=== PATIENT | female | born 1990 | race Two or more races ===

== ENCOUNTER 2020-08-04 05:12 | Inpatient (IN) ==
[2020-08-04] MEDS ORDERED: ONDANSETRON 4 MG/2 ML VIAL IV PRN ×2 (05:29→12:31)
[2020-08-04] MEDS ORDERED: OXYTOCIN/LR 20 UNIT/1,000 ML BAG IV SCH (05:30)
[2020-08-04] MEDS ORDERED: LACTATED RINGERS 1,000 ML IV SCH (05:30)
[2020-08-04 06:07] LABS: Basophils % 0.4 % (0.0-0.8); Eosinophils # 0.2 10*3/uL (0.0-0.87); Eosinophils % 2.1 % (0.00-10.9); Hematocrit 32.2 VOL% (35.7-47.0); Hemoglobin 9.9 GM/DL (12.0-16.0); Immature Granulocytes % 0.8 %; Immature Granulocytes Absolute 0.06 #; Lymphocytes # 2.8 10*3/uL (1.4-4.0); Lymphocytes % 39.7 % (21.3-54.2); Mean Corpuscular HGB Conc 30.7 GM/DL (32-36); Mean Corpuscular Volume 87.5 FL (87-102); Mean Platelet Volume 10.2 FL (9.6-12.0); Monocytes % 6.8 % (1.7-12.7); Neutrophils % 50.2 % (38.7-73.9); Platelet Count 148 T/CUMM (130-400); Red Blood Count 3.68 MC/CUMM (3.8-5.5); Red Cell Distribution Width 14.2 % (9.3-17.3); White Blood Count 7.1 T/CUMM (4-12)
[2020-08-04 06:30] LABS: Alanine Aminotransferase 10 U/L (13-56); Albumin 2.8 G/DL (3.4-5.0); Alkaline Phosphatase 197 U/L (45-117); Aspartate Amino Transferase 19 U/L (0-37); Bilirubin,Total < 0.39 MG/DL (0.2-1.0); Blood Urea Nitrogen 6 MG/DL (7-18); Calcium 8.6 MG/DL (8.5-10.1); Carbon Dioxide 21 MMOL/L (21-32); Estimated Glom Filtration Rate 115 ML/MIN; Glucose 77 MG/DL (74-106); Osmolality,Calculated 273.5 MOS/KG (273-304); Potassium 3.8 MMOL/L (3.5-5.1); Sodium 139 MMOL/L (136-145); Total Protein 7.2 G/DL (6.4-8.3)
[2020-08-04 06:36] LABS: Bacteria,Urine Few /HPF (Few); Bilirubin,Urine Negative (Negative); Blood, Urine Negative (Negative); Glucose,Urine (UA) Negative (Negative); Ketones,Urine Negative (Negative); Mucus,Urine Occasional /LPF (Occasional); Nitrite,Urine Negative (Negative); Protein,Urine Negative; RBC,Urine 1 /HPF (0-4); Squamous Epithelial Cell,Urine Moderate /HPF (0-10); Urine Appearance CLEAR (Clear); Urine Color Yellow (Yellow); Urine Specific Gravity 1.012 (1.001-1.035); Urine Urobilinogen < 2.0 EU/DL (0.2-1.0); WBC,Urine 2 /HPF (0-6)
[2020-08-04] MEDS ORDERED: miSOPROStoL 200 MCG TABLET ONE (11:22)
[2020-08-04] MEDS ORDERED: CARBOPROST TROMETHAMINE 250 MCG/ML AMP IM ONE (11:22)
[2020-08-04] MEDS ORDERED: METHYLERGONOVINE 0.2 MG/1 ML AMP ONE (11:22)
[2020-08-04] MEDS ORDERED: MEPERIDINE 50 MG/1 ML VIAL IV ONE (12:00)
[2020-08-04] MEDS ORDERED: oxyCODONE/ACETAMINOPHEN 5-325 MG TABLET PO PRN ×2 (12:31)
[2020-08-04] MEDS ORDERED: DIPH/TET/ACEL PERT BOOSTER VACCINE 0.5 ML VIAL IM ONE (12:31)
[2020-08-04] MEDS ORDERED: LANOLIN 50% CREAM 0.3 OZ TUBE TOP PRN (12:31)
[2020-08-04] MEDS ORDERED: WITCH HAZEL PADS 100/JAR TOP PRN (12:31)
[2020-08-04] MEDS ORDERED: BISACODYL 10 MG SUPP RECTAL PRN (12:31)
[2020-08-04] MEDS ORDERED: RHO(D) IMMUNE GLOBULIN 300 MCG SYRINGE IM ONE (12:31)
[2020-08-04] MEDS ORDERED: BENZOCAINE 20%/MENTHOL 0.5% SPRAY 56 GM CAN TOP PRN (12:31)
[2020-08-04] MEDS ORDERED: MEASLES/MUMPS/RUBELLA VACCINE 0.5 ML VIAL SUBCUT ONE (12:31)
[2020-08-04] MEDS ORDERED: ACETAMINOPHEN 325 MG TABLET PO PRN (12:31)
[2020-08-04] MEDS ORDERED: OXYTOCIN/LR 20 UNIT/1,000 ML BAG IV ONE (12:31)
[2020-08-04] MEDS ORDERED: HYDROCORTISONE 2.5% RECTAL CREAM 30 GM TUBE TOP PRN (12:31)
[2020-08-04 12:39] LABS: Cord Arterial Blood HCO3 24.3 MMOL/L
[2020-08-04 12:41] LABS: Cord Venous Blood HCO3 21.9 MMOL/L; Cord Venous Blood PCO2 40.1 MMHG
[2020-08-04] MEDS: IBUPROFEN 800 MG TABLET PO PRN (17:50)
[2020-08-04] MEDS: DOCUSATE SODIUM 100 MG CAPSULE PO SCH (21:03)
[2020-08-05] MEDS: IBUPROFEN 800 MG TABLET PO PRN ×2 (04:41→15:42)
[2020-08-05 05:40] LABS: Basophils % 0.4 % (0.0-0.8); Eosinophils # 0.2 10*3/uL (0.0-0.87); Eosinophils % 1.4 % (0.00-10.9); Hematocrit 26.3 VOL% (35.7-47.0); Hemoglobin 8.4 GM/DL (12.0-16.0); Immature Granulocytes % 0.5 %; Immature Granulocytes Absolute 0.06 #; Lymphocytes # 2.9 10*3/uL (1.4-4.0); Lymphocytes % 25.7 % (21.3-54.2); Mean Corpuscular HGB Conc 31.9 GM/DL (32-36); Mean Corpuscular Volume 84.6 FL (87-102); Mean Platelet Volume 10.7 FL (9.6-12.0); Monocytes % 7.4 % (1.7-12.7); Neutrophils % 64.6 % (38.7-73.9); Platelet Count 122 T/CUMM (130-400); Red Blood Count 3.11 MC/CUMM (3.8-5.5); Red Cell Distribution Width 14.2 % (9.3-17.3); White Blood Count 11.4 T/CUMM (4-12)
[2020-08-05 06:07] LABS: Platelet Estimate Adequate
[2020-08-05 06:08] LABS: Anisocytosis 1+; Ovalocytes Few; Poikilocytosis Slight; Tear Drop Cells Few
[2020-08-05] MEDS: DOCUSATE SODIUM 100 MG CAPSULE PO SCH ×2 (08:50→19:55)
[2020-08-05] MEDS: MULTIVITAMIN (PRENATAL) TABLET PO SCH (08:50)
[2020-08-05] MEDS ORDERED: INFLUENZA VIRUS VACCINE 0.5 ML SYRINGE IM ONE (09:00)
[2020-08-06] MEDS: IBUPROFEN 800 MG TABLET PO PRN (05:57)
[2020-08-06] MEDS: MULTIVITAMIN (PRENATAL) TABLET PO SCH (09:19)
[2020-08-06] MEDS: DOCUSATE SODIUM 100 MG CAPSULE PO SCH (09:19)
[2020-08-06 09:33] VITALS: BP 107/69
== END 2020-08-06 12:30 | disposition home or self-care (01) | DRG 807 ==
LOC: N.LD 05:12 → N.OB 15:29
PROVIDERS: ADMIT Specialist; ATTEND Specialist